=== PATIENT | male | born 1950 | race Caucasian/White ===

== ENCOUNTER 2019-11-01 02:40 | Emergency (ER) | payer OTHER ==
[~2019-11-01] VITALS: Ht 167.6 cm; Wt 59.0 kg
--- NOTE | 2019-11-01 02:50 | NUR ---
PT YAMILKA ENGLE. TAKEN TO BED 11
[2019-11-01 02:57] VITALS: BP 185/99
--- NOTE | 2019-11-01 02:57 | NUR ---
Heladio gao in [facility] - 11/01/19 at [address] Doe examining patient.
--- NOTE | 2019-11-01 02:59 | NUR ---
JAVIER BROWN AT BEDSIDE EVALUATING PT
[2019-11-01] MEDS ORDERED: ALBUTEROL 0.083% 2.5 MG/3 ML NEBU INH ONE (03:00)
[2019-11-01] MEDS ORDERED: ALBUTEROL SULFATE/IPRATROPIU 3 ML SOL IH ONE (03:00)
--- NOTE | 2019-11-01 03:00 | NUR ---
69M PT PRESENTS TO ED BIBA FOR C/O SOB X 1 DAYS. PT GIVEN DUONEB IN THE FIELD FOR SATS OF 91-92%. UPON ARRIVAL, PT 02SAT AT 91% IN RA. PT PLACED ON 2L N/C AND NOW SATS AT 100%. EXPIRATORY WHEEZES OBSERVED ON ALL LUNG JONES. RESPIRATIONS EVEN AND UNLABORED. OBSERVED DRY, NON-PRODUCTIVE COUGH. DENIES LOC. PMHX: HTN, ASTHMA, HEROIN USE RX: NON COMPLIANT WITH ALBUTEROL, AND METHADONE NKA NEGATIVE FOR COVID SCREENING PT WEARING MASK PLACED ON CARDIAC MONITORING POSITIONED FOR COMFORT WITH HOB ELEVATED, BED LOWEST AND LOCKED, RAILS X 2.
[2019-11-01 03:06] VITALS: BP 185/99
--- NOTE | 2019-11-01 03:10 | NUR ---
RT AT BEDSIDE PERFORMING RESPIRATORY INTERVENTIONS
[2019-11-01] MEDS ORDERED: predniSONE 20 MG TAB PO ONE (03:15)
--- NOTE | 2019-11-01 04:01 | NUR ---
Patient discharged with v/s stable. Written and verbal after care instructions given and explained. Patient alert, oriented and verbalized understanding of instructions. Ambulatory with steady gait. All questions addressed prior to discharge. ID band removed. Patient advised to follow up with PMD. Rx of PREDNISONE, AND MOTRIN given. Patient educated on indication of medication including possible reaction and side effects. Opportunity to ask questions provided and answered.
== END 2019-11-01 04:01 | disposition home or self-care (01) ==
LOC: MED 02:40
DX: J45.901 Unspecified asthma with (acute) exacerbation (principal); I10 Essential (primary) hypertension; F17.210 Nicotine dependence, cigarettes, uncomplicated
CPT/HCPCS: 94640; 99283; J7512